=== PATIENT | male | born 1960 | race Asian ===

== ENCOUNTER 2018-06-27 03:39 | Inpatient (IN) | payer OTHER ==
[~2018-06-27] VITALS: Ht 175.3 cm; Wt 46.5 kg
[2018-06-27] VITALS (8 sets, daily range): BP systolic 105–130; BP diastolic 44–97
[2018-06-27] MEDS ORDERED: SODIUM CHLORIDE 0.9% 500 ML IV ONE ×2 (04:00→05:30)
[2018-06-27] MEDS ORDERED: DEXTROSE 50%-WATER 25 GM/50 ML SYRINGE IVP ONE ×4 (04:54→22:06)
[2018-06-27] MEDS ORDERED: DEXTROSE 5%-0.9% SODIUM CHL 1,000 ML IV ONE (05:00)
[2018-06-27 05:02] LABS: INR 1.6 (0.9-1.1); PROTHROMBIN TIME 16.7 SEC (9.4-11.6)
[2018-06-27 05:04] LABS: GLUCOSE,POINT OF CARE 58 MG/DL (70-110)
[2018-06-27 05:05] LABS: ANION GAP 4 mmol/L (8-16); CALCIUM, TOTAL 7.2 mg/dL (8.8-10.5); CARBON DIOXIDE 28 mmol/L (22-29); CHLORIDE 105 mmol/L (98-107); GLOMERULAR FILTR. RATE CALC > 60 mL/min (>60); GLUCOSE,RANDOM 104 mg/dL (70-110); POTASSIUM 4.7 mmol/L (3.5-5.1); SODIUM SERUM 137 mmol/L (136-145); UREA NITROGEN, BLOOD 53 mg/dL (7-18)
[2018-06-27 05:10] LABS: ALANINE AMINOTRANSFERASE 76 U/L (12-78); ALBUMIN 1.7 g/dL (3.4-5.0); ALKALINE PHOSPHATASE 286 U/L (46-116); ASPARTATE AMINOTRANSFERASE 189 U/L (15-37); BILIRUBIN,TOTAL 0.4 mg/dL (0.1-1.0); PHOSPHORUS 6.2 mg/dL (2.5-4.9); TOTAL PROTEIN, SERUM 6.7 g/dL (6.4-8.2)
[2018-06-27 05:21] LABS: APPEARANCE,URINE CLOUDY (CLEAR); BILIRUBIN,URINE NEGATIVE (NEGATIVE); GLUCOSE, URINE (UA) NEGATIVE (NEGATIVE); KETONES,URINE NEGATIVE (NEGATIVE); LEUKOCYTE ESTERASE ,URINE NEGATIVE (NEGATIVE); NITRATE,URINE NEGATIVE (NEGATIVE); OCCULT BLOOD,URINE NEGATIVE (NEGATIVE); PROTEIN,URINE NEGATIVE (NEGATIVE); UROBILINOGEN,URINE 0.2 mg/dL (<=1.0)
[2018-06-27 05:26] LABS: AMPHET/METH SCREEN,URINE NEGATIVE (NEGATIVE); BARBITURATE SCREEN, URINE NEGATIVE (NEGATIVE); BENZODIAZEPINES SCREEN,URINE NEGATIVE (NEGATIVE); CANNABINOID SCREEN,URINE NEGATIVE (NEGATIVE); COCAINE SCREEN,URINE NEGATIVE (NEGATIVE); METHADONE SCREEN, URINE NEGATIVE (NEGATIVE); OPIATE SCREEN,URINE NEGATIVE (NEGATIVE); PHENCYCLIDINE SCREEN,URINE NEGATIVE (NEGATIVE)
[2018-06-27] MEDS ORDERED: SODIUM CHLORIDE 0.9% 100 ML ONE (05:37)
[2018-06-27] MEDS ORDERED: IOVERSOL 350 MG/ML 100 ML VIAL ONE (05:37)
[2018-06-27 05:39] LABS: BASOPHILS % (AUTO) 0.3 % (0.0-2.0); EOSINOPHILS % (AUTO) 0 % (1.0-6.0); LYMPHOCYTES # (AUTO) 0.6 K/uL (1.0-4.8); LYMPHOCYTES % (AUTO) 28.6 % (22.0-44.0); MEAN CORPUSCULAR HEMOGLOBIN 24.3 pg (26.0-34.0); MEAN CORPUSCULAR HGB CONC 30.4 G/dL (31.0-37.0); MEAN CORPUSCULAR VOLUME 80 fL (80-100); MONOCYTES # (AUTO) 0.1 K/uL (0.1-1.0); NEUTROPHILS # (AUTO) 1.4 K/uL (1.8-7.7); NEUTROPHILS % (AUTO) 65.1 % (40.0-70.0); PLATELET COUNT (AUTO) 231 K/uL (150-450); RED BLOOD CELL COUNT(AUTO) 2.25 MIL/uL (4.50-5.90); RED CELL DISTRIBUTION WIDTH 20.3 % (11.5-14.5)
[2018-06-27 05:46] LABS: HEMOGLOBIN 5.5 g/dL (13.5-17.5)
[2018-06-27] MEDS ORDERED: PIPERACILLIN/TAZO 3.375 GM/D5W 50 ML IV ONE (06:45)
[2018-06-27 06:49] LABS: GLUCOSE,POINT OF CARE 141 MG/DL (70-110)
[2018-06-27 07:15] LABS: LACTIC ACID 4.1 mmol/L (0.4-2.0)
[2018-06-27] MEDS ORDERED: VANCOMYCIN HCL 1 GM/D5% WATER 200 ML IV ONE (07:30)
[2018-06-27] MEDS ORDERED: SODIUM CHLORIDE 0.9% 1,000 ML IV ONE (07:30)
[2018-06-27] MEDS: BARIUM SULFATE 0.1% SUSPENSION 450 ML BOTTLE NG ONE ×2 (07:57→11:30)
[2018-06-27 07:58] LABS: GLUCOSE,POINT OF CARE 150 MG/DL (70-110)
[2018-06-27] MEDS ORDERED: HYDROCODONE/ACETAMINOPHEN 5-325 MG TABLET PO PRN (08:15)
[2018-06-27] MEDS ORDERED: MORPHINE SULFATE 4 MG/ML SYRINGE IVP PRN (08:15)
[2018-06-27] MEDS ORDERED: BISACODYL 10 MG RECTAL RECTAL SUPPOSITORY PR PRN (08:15)
[2018-06-27] MEDS ORDERED: ACETAMINOPHEN 325 MG TABLET PO PRN (08:15)
[2018-06-27] MEDS ORDERED: *CLINICAL-LEVOFLOXACIN IVPB DOSING CLINICAL ONE (08:15)
[2018-06-27] MEDS ORDERED: MAGNESIUM HYDROXIDE SUSPENSION 30 ML UDCUP PO PRN (08:15)
[2018-06-27] MEDS ORDERED: ONDANSETRON HCL 4 MG/2 ML VIAL IVP PRN (08:15)
[2018-06-27] MEDS ORDERED: ZOLPIDEM TARTRATE 5 MG TABLET PO PRN (08:15)
[2018-06-27] MEDS ORDERED: LEVOFLOXACIN 750 MG/D5% WATER 150 ML IV SCH (09:00)
[2018-06-27 09:14] LABS: GLUCOSE,POINT OF CARE 173 MG/DL (70-110)
[2018-06-27 09:44] LABS: GLUCOSE,POINT OF CARE 188 MG/DL (70-110)
[2018-06-27] MEDS: DOCUSATE SODIUM 100 MG CAPSULE PO SCH ×2 (09:45→21:07)
[2018-06-27] MEDS: PANTOPRAZOLE SODIUM 40 MG DR TABLET PO SCH (09:45)
[2018-06-27] MEDS ORDERED: SODIUM CHLORIDE 0.9% 250 ML IV ONE ×3 (10:28→20:17)
[2018-06-27] MEDS: CLINDAMYCIN 600 MG/D5% WATER 50 ML IV SCH ×2 (12:02→16:50)
[2018-06-27] MEDS ORDERED: SODIUM BICARBONATE [ADULT] 8.4% 50 MEQ/50 ML SYRINGE IVP ONE (14:25)
[2018-06-27] MEDS ORDERED: EPINEPHrine 1:10,000 [1 MG/10 ML] SYRINGE IVP ONE (14:25)
[2018-06-27 16:11] LABS: HEMATOCRIT 32.6 % (41-53); HEMOGLOBIN 10.5 g/dL (13.5-17.5)
[2018-06-27] MEDS: HEPARIN SODIUM,PORCINE 5,000 UNITS/ML VIAL SQ SCH ×2 (16:49→23:40)
[2018-06-27] MEDS ORDERED: SODIUM CHLORIDE 0.9% 1,000 ML IV SCH (17:15)
[2018-06-27] MEDS: CefTRIAXone 1 GM/DEXTROSE 50 ML IV SCH (18:44)
[2018-06-27] MEDS: MetroNIDAZOLE 500 MG/NACL 100 ML IV SCH (18:44)
[2018-06-27 22:57] LABS: BASOPHILS % (AUTO) 0.1 % (0.0-2.0); MEAN CORPUSCULAR HGB CONC 29.1 G/dL (31.0-37.0); MONOCYTES # (AUTO) 0.1 K/uL (0.1-1.0); RED BLOOD CELL COUNT(AUTO) 2.45 MIL/uL (4.50-5.90)
[2018-06-27 23:00] LABS: EOSINOPHILS % (AUTO) 0.2 % (1.0-6.0); LYMPHOCYTES # (AUTO) 1.4 K/uL (1.0-4.8); LYMPHOCYTES % (AUTO) 56.7 % (22.0-44.0); MEAN CORPUSCULAR HEMOGLOBIN 26.2 pg (26.0-34.0); MEAN CORPUSCULAR VOLUME 90 fL (80-100); MONOCYTES % (AUTO) 3.3 % (2.0-9.0); NEUTROPHILS % (AUTO) 39.7 % (40.0-70.0); PLATELET COUNT (AUTO) 125 K/uL (150-450); RED CELL DISTRIBUTION WIDTH 18.7 % (11.5-14.5)
[2018-06-27 23:01] LABS: HEMOGLOBIN 6.4 g/dL (13.5-17.5)
[2018-06-27 23:14] LABS: PLATELET MORPHOLOGY COMMENT LARGE PLTS PRESENT
[2018-06-27 23:28] LABS: ANION GAP 7 mmol/L (8-16); CARBON DIOXIDE 24 mmol/L (22-29); CHLORIDE 103 mmol/L (98-107); CREATININE 0.92 mg/dL (0.60-1.30); GLOMERULAR FILTR. RATE CALC > 60 mL/min (>60); PHOSPHORUS 7.6 mg/dL (2.5-4.9); POTASSIUM 4.4 mmol/L (3.5-5.1); SODIUM SERUM 134 mmol/L (136-145); UREA NITROGEN, BLOOD 44 mg/dL (7-18)
[2018-06-27 23:39] LABS: GLUCOSE,POINT OF CARE < 10 MG/DL (70-110)
[2018-06-27 23:39] LABS: GLUCOSE,POINT OF CARE < 10 MG/DL (70-110)
[2018-06-27 23:39] LABS: GLUCOSE,POINT OF CARE 236 MG/DL (70-110)
[2018-06-27 23:39] LABS: GLUCOSE,POINT OF CARE < 10 MG/DL (70-110)
[2018-06-27 23:45] LABS: CALCIUM, TOTAL 5.7 mg/dL (8.8-10.5); GLUCOSE,RANDOM 707 mg/dL (70-110)
[2018-06-28] MEDS ORDERED: PHENYLEPHRINE 200 MG/D5%-WATER 250 ML IV PRN
[2018-06-28 00:06] LABS: ABG BASE EXCESS -11.3 mmol/L (-2.0-3.0); ABG CARBOXYHEMOGLOBIN 1.3 % (0.0-1.5); ABG HCO3 15.5 mmol/L (22.0-26.0); ABG METHEMOGLOBIN 0.3 % (0.0-1.5); ABG OXYGEN CONTENT 11.3 mL/dL (15.0-23.0); ABG OXYGEN SATURATION 88.7 % (95.0-98.0); ABG OXYHEMOGLOBIN 87.3 % (94.0-100.0); ABG PCO2 55 mmHg (35-45); ABG TOTAL HEMOGLOBIN 9.1 G/dL (12.0-18.0); PO2, ARTERIAL BG 65.4 mmHg (84.0-92.0); SOURCE, BLOOD GAS ARTERIAL; TEMPERATURE, FAHRENHEIT, BG 93.7 FAHREN (96.0-98.6)
[2018-06-28 00:07] LABS: ABG PH 7.126 (7.35-7.450); O2 DEVICE,BLOOD GAS VENTILATOR (ROOM AIR); PEEP,BG 5 cm H2O; SITE, BLOOD GAS RT FEMORAL; VT, ABG 350 ml
[2018-06-28 00:08] LABS: SPONTANEOUS VT, BG 608 ml
[2018-06-28] MEDS ORDERED: MORPHINE SULFATE 4 MG/ML SYRINGE IVP PRN (03:00)
[2018-06-28] MEDS: DEXTROSE 5%-0.9% SODIUM CHL 1,000 ML IV SCH ×2 (03:00→14:07)
[2018-06-28] MEDS: MetroNIDAZOLE 500 MG/NACL 100 ML IV SCH ×3 (03:37→19:00)
[2018-06-28 04:00] VITALS: BP 129/54
[2018-06-28 04:33] LABS: ABG A-A DIFF O2 616.2 mmHg (10-20.0); ABG BASE EXCESS -11.9 mmol/L (-2.0-3.0); ABG CARBOXYHEMOGLOBIN 0.9 % (0.0-1.5); ABG HCO3 15.5 mmol/L (22.0-26.0); ABG METHEMOGLOBIN 0.3 % (0.0-1.5); ABG OXYGEN CONTENT 13.4 mL/dL (15.0-23.0); ABG OXYGEN SATURATION 95.2 % (95.0-98.0); ABG OXYHEMOGLOBIN 94.1 % (94.0-100.0); ABG PCO2 35 mmHg (35-45); ABG PH 7.262 (7.35-7.450); PO2, ARTERIAL BG 72.8 mmHg (84.0-92.0); SOURCE, BLOOD GAS ARTERIAL; TEMPERATURE, FAHRENHEIT, BG 90.3 FAHREN (96.0-98.6)
[2018-06-28 04:34] LABS: O2 DEVICE,BLOOD GAS VENTILATOR (ROOM AIR); PEEP,BG 5 cm H2O; SITE, BLOOD GAS RT FEMORAL; VT, ABG 400 ml
[2018-06-28 06:50] LABS: GLUCOSE,POINT OF CARE 274 MG/DL (70-110)
[2018-06-28 06:50] LABS: GLUCOSE,POINT OF CARE 214 MG/DL (70-110)
[2018-06-28 06:50] LABS: GLUCOSE,POINT OF CARE 168 MG/DL (70-110)
[2018-06-28 06:53] LABS: GLUCOSE,POINT OF CARE 169 MG/DL (70-110)
[2018-06-28 08:00] VITALS: BP 126/46
[2018-06-28 08:15] LABS: HEMATOCRIT 33.2 % (41-53); HEMOGLOBIN 10.5 g/dL (13.5-17.5); MEAN CORPUSCULAR HEMOGLOBIN 26.5 pg (26.0-34.0); MEAN CORPUSCULAR HGB CONC 31.7 G/dL (31.0-37.0); MEAN CORPUSCULAR VOLUME 84 fL (80-100); PLATELET COUNT (AUTO) 147 K/uL (150-450); RED BLOOD CELL COUNT(AUTO) 3.97 MIL/uL (4.50-5.90); RED CELL DISTRIBUTION WIDTH 18.3 % (11.5-14.5)
[2018-06-28 08:25] LABS: INR 2.1 (0.9-1.1); PROTHROMBIN TIME 21.5 SEC (9.4-11.6)
[2018-06-28 08:32] LABS: ALANINE AMINOTRANSFERASE 394 U/L (12-78); ALBUMIN 1.3 g/dL (3.4-5.0); ALKALINE PHOSPHATASE 326 U/L (46-116); ANION GAP 11 mmol/L (8-16); ASPARTATE AMINOTRANSFERASE 866 U/L (15-37); BILIRUBIN,TOTAL 0.5 mg/dL (0.1-1.0); CARBON DIOXIDE 22 mmol/L (22-29); CHLORIDE 104 mmol/L (98-107); CREATININE 0.98 mg/dL (0.60-1.30); GLOMERULAR FILTR. RATE CALC > 60 mL/min (>60); GLUCOSE,RANDOM 164 mg/dL (70-110); LACTATE DEHYDROGENASE 505 U/L (85-227); PHOSPHORUS 6.6 mg/dL (2.5-4.9); POTASSIUM 3.9 mmol/L (3.5-5.1); SODIUM SERUM 137 mmol/L (136-145); TOTAL PROTEIN, SERUM 5.6 g/dL (6.4-8.2); UREA NITROGEN, BLOOD 52 mg/dL (7-18)
[2018-06-28 08:38] LABS: CALCIUM, TOTAL 5.8 mg/dL (8.8-10.5)
[2018-06-28] MEDS: DOCUSATE SODIUM 100 MG CAPSULE PO SCH ×2 (08:41→21:01)
[2018-06-28] MEDS: PANTOPRAZOLE SODIUM 40 MG DR TABLET PO SCH (08:41)
[2018-06-28] MEDS: HEPARIN SODIUM,PORCINE 5,000 UNITS/ML VIAL SQ SCH ×2 (08:41→16:31)
[2018-06-28 09:02] LABS: BAND NEUTROPHILS % (MANUAL) 6 % (0-5); LYMPHOCYTES % (MANUAL) 12 % (22-44); MONOCYTES % (MANUAL) 3 % (2-9); SEGMENTED NEUTROPHILS % 79 % (40-70)
[2018-06-28 09:14] LABS: GLUCOSE,POINT OF CARE 135 MG/DL (70-110)
[2018-06-28 09:39] LABS: ABG A-A DIFF O2 397.1 mmHg (10-20.0); ABG CARBOXYHEMOGLOBIN 0.8 % (0.0-1.5); ABG HCO3 19.4 mmol/L (22.0-26.0); ABG METHEMOGLOBIN 0.3 % (0.0-1.5); ABG OXYGEN CONTENT 14.3 mL/dL (15.0-23.0); ABG OXYGEN SATURATION 99.7 % (95.0-98.0); ABG OXYHEMOGLOBIN 98.6 % (94.0-100.0); ABG PCO2 34 mmHg (35-45); ABG PH 7.359 (7.35-7.450); ABG TOTAL HEMOGLOBIN 9.8 G/dL (12.0-18.0); PO2, ARTERIAL BG 282.4 mmHg (84.0-92.0); SITE, BLOOD GAS RT FEMORAL; SOURCE, BLOOD GAS ARTERIAL; TEMPERATURE, FAHRENHEIT, BG 98.6 FAHREN (96.0-98.6)
[2018-06-28 09:40] LABS: O2 DEVICE,BLOOD GAS VENTILATOR (ROOM AIR); PEEP,BG 5 cm H2O; SPONTANEOUS VT, BG 540 ml; VT, ABG 500 ml
[2018-06-28 12:00] VITALS: BP 129/74
[2018-06-28 12:59] LABS: GLUCOSE,POINT OF CARE 114 MG/DL (70-110)
[2018-06-28 13:28] LABS: ALANINE AMINOTRANSFERASE 382 U/L (12-78); ALBUMIN 1.4 g/dL (3.4-5.0); ALKALINE PHOSPHATASE 315 U/L (46-116); ANION GAP 12 mmol/L (8-16); ASPARTATE AMINOTRANSFERASE 787 U/L (15-37); BILIRUBIN,TOTAL 0.6 mg/dL (0.1-1.0); CALCIUM, TOTAL 6.1 mg/dL (8.8-10.5); CARBON DIOXIDE 22 mmol/L (22-29); CHLORIDE 103 mmol/L (98-107); CREATININE 0.89 mg/dL (0.60-1.30); GLOMERULAR FILTR. RATE CALC > 60 mL/min (>60); GLUCOSE,RANDOM 129 mg/dL (70-110); POTASSIUM 3.7 mmol/L (3.5-5.1); SODIUM SERUM 137 mmol/L (136-145); TOTAL PROTEIN, SERUM 5.9 g/dL (6.4-8.2); UREA NITROGEN, BLOOD 53 mg/dL (7-18)
[2018-06-28 15:15] LABS: ABG A-A DIFF O2 214.6 mmHg (10-20.0); ABG BASE EXCESS -8.1 mmol/L (-2.0-3.0); ABG CARBOXYHEMOGLOBIN 0.9 % (0.0-1.5); ABG HCO3 18.7 mmol/L (22.0-26.0); ABG METHEMOGLOBIN 0.3 % (0.0-1.5); ABG OXYGEN CONTENT 14.1 mL/dL (15.0-23.0); ABG OXYGEN SATURATION 99.9 % (95.0-98.0); ABG OXYHEMOGLOBIN 98.7 % (94.0-100.0); ABG PCO2 23 mmHg (35-45); ABG PH 7.466 (7.35-7.450); ABG TOTAL HEMOGLOBIN 9.5 G/dL (12.0-18.0); PO2, ARTERIAL BG 306.1 mmHg (84.0-92.0); SOURCE, BLOOD GAS ARTERIAL; TEMPERATURE, FAHRENHEIT, BG 87.6 FAHREN (96.0-98.6)
[2018-06-28 15:17] LABS: O2 DEVICE,BLOOD GAS VENTILATOR (ROOM AIR); SITE, BLOOD GAS RT RADIAL; VT, ABG 500 ml
[2018-06-28 15:18] LABS: PEEP,BG 5 cm H2O
[2018-06-28 16:00] VITALS: BP 122/76
[2018-06-28] MEDS ORDERED: VANCOMYCIN HCL 1 GM/D5% WATER 200 ML IV ONE (16:00)
[2018-06-28] MEDS ORDERED: CALCIUM GLUCONATE 1,000 MG in DEXTROSE 5%-WATER 50 ML IV ONE (17:15)
[2018-06-28] MEDS ORDERED: LIDOCAINE 2% 30 ML JELLY TP ONE (18:05)
[2018-06-28] MEDS ORDERED: LIDOCAINE 4% 50 ML SOLUTION TP ONE (18:05)
[2018-06-28] MEDS ORDERED: EPINEPHrine 1:1,000 [1 MG/ML] AMP IM ONE (18:05)
[2018-06-28] MEDS: CefTRIAXone 1 GM/DEXTROSE 50 ML IV SCH (18:11)
[2018-06-28 18:35] LABS: GLUCOSE,POINT OF CARE 130 MG/DL (70-110)
[2018-06-28] MEDS: LORazepam 2 MG/ML VIAL IVP PRN (19:42)
[2018-06-28 20:00] VITALS: BP 168/103
[2018-06-28 20:00] LABS: ALANINE AMINOTRANSFERASE 335 U/L (12-78); ALBUMIN 1.3 g/dL (3.4-5.0); ALKALINE PHOSPHATASE 294 U/L (46-116); ANION GAP 11 mmol/L (8-16); ASPARTATE AMINOTRANSFERASE 582 U/L (15-37); BILIRUBIN,TOTAL 0.5 mg/dL (0.1-1.0); CALCIUM, TOTAL 6.2 mg/dL (8.8-10.5); CARBON DIOXIDE 20 mmol/L (22-29); CHLORIDE 103 mmol/L (98-107); CREATININE 0.98 mg/dL (0.60-1.30); GLOMERULAR FILTR. RATE CALC > 60 mL/min (>60); GLUCOSE,RANDOM 190 mg/dL (70-110); PHOSPHORUS 5.7 mg/dL (2.5-4.9); POTASSIUM 3.4 mmol/L (3.5-5.1); SODIUM SERUM 134 mmol/L (136-145); TOTAL PROTEIN, SERUM 5.6 g/dL (6.4-8.2); UREA NITROGEN, BLOOD 53 mg/dL (7-18)
[2018-06-28 21:14] LABS: ABG A-A DIFF O2 98.8 mmHg (10-20.0); ABG BASE EXCESS -9.5 mmol/L (-2.0-3.0); ABG CARBOXYHEMOGLOBIN 0.9 % (0.0-1.5); ABG HCO3 17.9 mmol/L (22.0-26.0); ABG METHEMOGLOBIN 0.3 % (0.0-1.5); ABG OXYGEN CONTENT 14.8 mL/dL (15.0-23.0); ABG OXYGEN SATURATION 99.9 % (95.0-98.0); ABG OXYHEMOGLOBIN 98.7 % (94.0-100.0); ABG PCO2 21 mmHg (35-45); ABG PH 7.465 (7.35-7.450); ABG TOTAL HEMOGLOBIN 10.2 G/dL (12.0-18.0); PO2, ARTERIAL BG 239.4 mmHg (84.0-92.0); SOURCE, BLOOD GAS ARTERIAL; TEMPERATURE, FAHRENHEIT, BG 90.7 FAHREN (96.0-98.6)
[2018-06-28 21:14] LABS: GLUCOSE,POINT OF CARE 127 MG/DL (70-110)
[2018-06-28 21:15] LABS: O2 DEVICE,BLOOD GAS VENTILATOR (ROOM AIR); PEEP,BG 5 cm H2O; SITE, BLOOD GAS LFT RADIAL; VT, ABG 500 ml
[2018-06-28] MEDS ORDERED: PROPOFOL 1000 MG/ISO-OSM 100 ML IV PRN (22:44)
[2018-06-29] VITALS: BP 132/84
[2018-06-29] MEDS: DEXTROSE 5%-0.9% SODIUM CHL 1,000 ML IV SCH ×3 (00:21→21:07)
[2018-06-29] MEDS: HEPARIN SODIUM,PORCINE 5,000 UNITS/ML VIAL SQ SCH ×4 (00:21→23:58)
[2018-06-29 00:59] LABS: GLUCOSE,POINT OF CARE 150 MG/DL (70-110)
[2018-06-29 01:39] LABS: ALANINE AMINOTRANSFERASE 286 U/L (12-78); ALBUMIN 1.2 g/dL (3.4-5.0); ALKALINE PHOSPHATASE 249 U/L (46-116); ANION GAP 11 mmol/L (8-16); ASPARTATE AMINOTRANSFERASE 457 U/L (15-37); BILIRUBIN,TOTAL 0.4 mg/dL (0.1-1.0); CARBON DIOXIDE 22 mmol/L (22-29); CHLORIDE 103 mmol/L (98-107); CREATININE 1.18 mg/dL (0.60-1.30); GLOMERULAR FILTR. RATE CALC > 60 mL/min (>60); GLUCOSE,RANDOM 158 mg/dL (70-110); PHOSPHORUS 5.4 mg/dL (2.5-4.9); SODIUM SERUM 136 mmol/L (136-145); UREA NITROGEN, BLOOD 57 mg/dL (7-18)
[2018-06-29 01:45] LABS: CALCIUM, TOTAL 5.5 mg/dL (8.8-10.5); POTASSIUM 2.8 mmol/L (3.5-5.1)
[2018-06-29] MEDS ORDERED: POTASSIUM CHLORIDE 10% 40 MEQ/30 ML LIQUID UDCUP NG PRN (02:00)
[2018-06-29] MEDS ORDERED: POTASSIUM CHL 10 MEQ/WATER 50 ML IV PRN (02:00)
[2018-06-29] MEDS ORDERED: POTASSIUM CHLORIDE 20 MEQ ER TABLET PO PRN (02:00)
[2018-06-29] MEDS ORDERED: SODIUM CHLORIDE 0.9% 250 ML IV ONE ×2 (02:06→07:23)
[2018-06-29] MEDS: POTASSIUM CHL 10 MEQ/WATER 50 ML IV PRN ×2 (02:26→11:33)
[2018-06-29] MEDS: MetroNIDAZOLE 500 MG/NACL 100 ML IV SCH ×3 (02:28→17:48)
[2018-06-29] MEDS ORDERED: CALCIUM GLUCONATE 1,000 MG in DEXTROSE 5%-WATER 50 ML IV ONE ×2 (02:30→10:00)
[2018-06-29] MEDS ORDERED: SODIUM CHLORIDE 0.9% 1,000 ML IV ONE (02:45)
[2018-06-29 03:06] LABS: ABG A-A DIFF O2 74.2 mmHg (10-20.0); ABG BASE EXCESS -7.2 mmol/L (-2.0-3.0); ABG CARBOXYHEMOGLOBIN 0.7 % (0.0-1.5); ABG HCO3 19.4 mmol/L (22.0-26.0); ABG METHEMOGLOBIN 0.3 % (0.0-1.5); ABG OXYGEN CONTENT 13.5 mL/dL (15.0-23.0); ABG OXYGEN SATURATION 98.7 % (95.0-98.0); ABG OXYHEMOGLOBIN 97.7 % (94.0-100.0); ABG PCO2 23 mmHg (35-45); ABG TOTAL HEMOGLOBIN 9.6 G/dL (12.0-18.0); O2 DEVICE,BLOOD GAS VENTILATOR (ROOM AIR); PEEP,BG 5 cm H2O; PO2, ARTERIAL BG 115.7 mmHg (84.0-92.0); SITE, BLOOD GAS LFT RADIAL; SOURCE, BLOOD GAS ARTERIAL; TEMPERATURE, FAHRENHEIT, BG 91.6 FAHREN (96.0-98.6); VT, ABG 400 ml
[2018-06-29] MEDS: LORazepam 2 MG/ML VIAL IVP PRN ×2 (03:08→20:21)
[2018-06-29] MEDS: ACETAMINOPHEN 650 MG/20.3 ML SOLUTION UDCUP NG SCH ×5 (03:10→21:07)
[2018-06-29 04:00] VITALS: BP 131/89
[2018-06-29 04:44] LABS: GLUCOSE,POINT OF CARE 131 MG/DL (70-110)
[2018-06-29 07:57] LABS: ALANINE AMINOTRANSFERASE 264 U/L (12-78); ALBUMIN 1.2 g/dL (3.4-5.0); ALKALINE PHOSPHATASE 225 U/L (46-116); ANION GAP 11 mmol/L (8-16); ASPARTATE AMINOTRANSFERASE 378 U/L (15-37); BILIRUBIN,TOTAL 0.3 mg/dL (0.1-1.0); CARBON DIOXIDE 20 mmol/L (22-29); CHLORIDE 106 mmol/L (98-107); CREATININE 1.11 mg/dL (0.60-1.30); GLOMERULAR FILTR. RATE CALC > 60 mL/min (>60); GLUCOSE,RANDOM 165 mg/dL (70-110); POTASSIUM 3.1 mmol/L (3.5-5.1); SODIUM SERUM 137 mmol/L (136-145); THYROID STIMULATING HORMONE 2.95 uIU/mL (0.36-3.74); TOTAL PROTEIN, SERUM 4.7 g/dL (6.4-8.2); UREA NITROGEN, BLOOD 54 mg/dL (7-18)
[2018-06-29 08:00] VITALS: BP 115/65
[2018-06-29 08:18] LABS: CALCIUM, TOTAL 5.4 mg/dL (8.8-10.5)
[2018-06-29] MEDS: VANCOMYCIN HCL 750 MG in DEXTROSE 5%-WATER 250 ML IV SCH ×2 (08:21→21:07)
[2018-06-29] MEDS: DOCUSATE SODIUM 100 MG CAPSULE PO SCH ×2 (08:22→21:07)
[2018-06-29] MEDS: PANTOPRAZOLE SODIUM 40 MG DR TABLET PO SCH (08:22)
[2018-06-29 08:35] LABS: GLUCOSE,POINT OF CARE 144 MG/DL (70-110)
[2018-06-29 11:23] LABS: ABG BASE EXCESS -8.1 mmol/L (-2.0-3.0); ABG CARBOXYHEMOGLOBIN 0.9 % (0.0-1.5); ABG HCO3 18.7 mmol/L (22.0-26.0); ABG METHEMOGLOBIN 0.3 % (0.0-1.5); ABG OXYGEN CONTENT 12.6 mL/dL (15.0-23.0); ABG OXYGEN SATURATION 98.1 % (95.0-98.0); ABG OXYHEMOGLOBIN 96.9 % (94.0-100.0); ABG PCO2 24 mmHg (35-45); ABG TOTAL HEMOGLOBIN 9.1 G/dL (12.0-18.0); PO2, ARTERIAL BG 106.3 mmHg (84.0-92.0); SITE, BLOOD GAS LFT RADIAL; SOURCE, BLOOD GAS ARTERIAL; TEMPERATURE, FAHRENHEIT, BG 96.4 FAHREN (96.0-98.6)
[2018-06-29 11:24] LABS: O2 DEVICE,BLOOD GAS VENTILATOR (ROOM AIR); PEEP,BG 5 cm H2O; VT, ABG 400 ml
[2018-06-29 12:00] VITALS: BP 132/76
[2018-06-29 12:09] LABS: GLUCOSE,POINT OF CARE 138 MG/DL (70-110)
[2018-06-29 13:44] LABS: ALBUMIN 1.3 g/dL (3.4-5.0); BILIRUBIN,TOTAL 0.4 mg/dL (0.1-1.0); CREATININE 1.25 mg/dL (0.60-1.30); MAGNESIUM 1.6 mg/dL (1.80-2.40); POTASSIUM 3.7 mmol/L (3.5-5.1); TOTAL PROTEIN, SERUM 5.2 g/dL (6.4-8.2)
[2018-06-29 13:50] LABS: CALCIUM, TOTAL 5.7 mg/dL (8.8-10.5)
[2018-06-29 16:00] VITALS: BP 119/74
[2018-06-29] MEDS ORDERED: IOVERSOL 320 MG/ML 50 ML VIAL ONE (16:31)
[2018-06-29] MEDS ORDERED: SODIUM CHLORIDE 0.9% 100 ML ONE (16:31)
[2018-06-29] MEDS ORDERED: IOVERSOL 320 MG/ML 100 ML VIAL ONE (16:31)
[2018-06-29] MEDS ORDERED: DEXTROSE 50%-WATER 25 GM/50 ML SYRINGE IVP ONE ×2 (16:45)
[2018-06-29] MEDS: CefTRIAXone 1 GM/DEXTROSE 50 ML IV SCH (16:55)
[2018-06-29 17:19] LABS: GLUCOSE,POINT OF CARE 101 MG/DL (70-110)
[2018-06-29 17:19] LABS: GLUCOSE,POINT OF CARE 68 MG/DL (70-110)
[2018-06-29 20:00] VITALS: BP 150/95
[2018-06-29 21:33] LABS: GLUCOSE,POINT OF CARE 127 MG/DL (70-110)
[2018-06-30] VITALS: BP 143/79
[2018-06-30] MEDS: ACETAMINOPHEN 650 MG/20.3 ML SOLUTION UDCUP NG SCH (02:59)
[2018-06-30] MEDS: MetroNIDAZOLE 500 MG/NACL 100 ML IV SCH ×3 (03:04→18:19)
[2018-06-30 04:00] VITALS: BP 118/92
[2018-06-30 05:19] LABS: GLUCOSE,POINT OF CARE 156 MG/DL (70-110)
[2018-06-30 05:19] LABS: GLUCOSE,POINT OF CARE 138 MG/DL (70-110)
[2018-06-30 05:31] LABS: CREATININE 1.28 mg/dL (0.60-1.30); VANCOMYCIN,RANDOM 42.4 mcg/mL (25.0-50.0)
[2018-06-30 05:34] LABS: POTASSIUM 2.8 mmol/L (3.5-5.1)
[2018-06-30 05:35] LABS: CALCIUM, TOTAL 5.6 mg/dL (8.8-10.5)
[2018-06-30] MEDS: POTASSIUM CHL 10 MEQ/WATER 50 ML IV PRN ×7 (06:03→16:51)
[2018-06-30] MEDS: DEXTROSE 5%-0.9% SODIUM CHL 1,000 ML IV SCH ×2 (07:51→16:51)
[2018-06-30 08:00] VITALS: BP 156/103
[2018-06-30] MEDS ORDERED: DEXTROSE 50%-WATER 25 GM/50 ML SYRINGE IVP ONE (08:15)
[2018-06-30] MEDS: HEPARIN SODIUM,PORCINE 5,000 UNITS/ML VIAL SQ SCH ×3 (08:22→23:57)
[2018-06-30] MEDS: VANCOMYCIN HCL 750 MG in DEXTROSE 5%-WATER 250 ML IV SCH (08:24)
[2018-06-30] MEDS ORDERED: SODIUM CHLORIDE 0.9% 250 ML IV ONE ×2 (09:37→16:49)
[2018-06-30] MEDS: PANTOPRAZOLE SODIUM 40 MG DR TABLET PO SCH (10:28)
[2018-06-30] MEDS: DOCUSATE SODIUM 100 MG CAPSULE PO SCH ×2 (10:28→22:23)
[2018-06-30 12:00] VITALS: BP 132/83
[2018-06-30 16:00] VITALS: BP 132/91
[2018-06-30] MEDS: CefTRIAXone 1 GM/DEXTROSE 50 ML IV SCH (16:48)
[2018-06-30 18:14] LABS: GLUCOSE,POINT OF CARE 112 MG/DL (70-110)
[2018-06-30 18:14] LABS: GLUCOSE,POINT OF CARE 121 MG/DL (70-110)
[2018-06-30 18:14] LABS: GLUCOSE,POINT OF CARE 110 MG/DL (70-110)
[2018-06-30 18:14] LABS: GLUCOSE,POINT OF CARE 60 MG/DL (70-110)
[2018-06-30 20:00] VITALS: BP 141/83
[2018-07-01] VITALS: BP 151/86
[2018-07-01] MEDS: MetroNIDAZOLE 500 MG/NACL 100 ML IV SCH ×3 (03:13→18:40)
[2018-07-01] MEDS: DEXTROSE 5%-0.9% SODIUM CHL 1,000 ML IV SCH ×2 (03:15→13:42)
[2018-07-01 04:00] VITALS: BP 160/90
[2018-07-01 05:21] LABS: ANION GAP 12 mmol/L (8-16); CALCIUM, TOTAL 6.1 mg/dL (8.8-10.5); CARBON DIOXIDE 19 mmol/L (22-29); CHLORIDE 108 mmol/L (98-107); GLOMERULAR FILTR. RATE CALC > 60 mL/min (>60); GLUCOSE,RANDOM 111 mg/dL (70-110); POTASSIUM 3.6 mmol/L (3.5-5.1); SODIUM SERUM 139 mmol/L (136-145); UREA NITROGEN, BLOOD 45 mg/dL (7-18)
[2018-07-01 08:00] VITALS: BP 156/92
[2018-07-01] MEDS: DOCUSATE SODIUM 100 MG CAPSULE PO SCH (08:53)
[2018-07-01] MEDS: HEPARIN SODIUM,PORCINE 5,000 UNITS/ML VIAL SQ SCH ×2 (08:53→17:31)
[2018-07-01] MEDS: PANTOPRAZOLE SODIUM 40 MG DR TABLET PO SCH (08:53)
[2018-07-01 09:40] LABS: GLUCOSE,POINT OF CARE 97 MG/DL (70-110)
[2018-07-01 09:58] LABS: ABG BASE EXCESS -10.5 mmol/L (-2.0-3.0); ABG CARBOXYHEMOGLOBIN 0.5 % (0.0-1.5); ABG HCO3 17.2 mmol/L (22.0-26.0); ABG METHEMOGLOBIN 0.3 % (0.0-1.5); ABG OXYGEN CONTENT 12.3 mL/dL (15.0-23.0); ABG OXYGEN SATURATION 98.6 % (95.0-98.0); ABG OXYHEMOGLOBIN 97.8 % (94.0-100.0); ABG PCO2 18 mmHg (35-45); ABG PH 7.478 (7.35-7.450); ABG TOTAL HEMOGLOBIN 8.7 G/dL (12.0-18.0); PO2, ARTERIAL BG 146.1 mmHg (84.0-92.0); SITE, BLOOD GAS RT RADIAL; SOURCE, BLOOD GAS ARTERIAL; TEMPERATURE, FAHRENHEIT, BG 97.6 FAHREN (96.0-98.6)
[2018-07-01 09:59] LABS: O2 DEVICE,BLOOD GAS VENTILATOR (ROOM AIR); PEEP,BG 5 cm H2O; VT, ABG 400 ml
[2018-07-01 12:00] VITALS: BP 141/87
[2018-07-01 16:00] VITALS: BP 145/79
[2018-07-01 16:58] LABS: GLUCOSE,POINT OF CARE 101 MG/DL (70-110)
[2018-07-01 16:58] LABS: GLUCOSE,POINT OF CARE 115 MG/DL (70-110)
[2018-07-01 16:58] LABS: GLUCOSE,POINT OF CARE 97 MG/DL (70-110)
[2018-07-01 16:58] LABS: GLUCOSE,POINT OF CARE 89 MG/DL (70-110)
[2018-07-01] MEDS ORDERED: LevETIRAcetam 500 MG in DEXTROSE 5%-WATER 100 ML IV ONE (17:00)
[2018-07-01] MEDS: CefTRIAXone 1 GM/DEXTROSE 50 ML IV SCH (17:31)
[2018-07-01 17:53] LABS: GLUCOSE,POINT OF CARE 96 MG/DL (70-110)
[2018-07-01 18:06] LABS: BASOPHILS % (AUTO) 0.1 % (0.0-2.0); EOSINOPHILS % (AUTO) 0.4 % (1.0-6.0); HEMATOCRIT 25.6 % (41-53); HEMOGLOBIN 8.3 g/dL (13.5-17.5); LYMPHOCYTES # (AUTO) 0.5 K/uL (1.0-4.8); LYMPHOCYTES % (AUTO) 6.1 % (22.0-44.0); MEAN CORPUSCULAR HGB CONC 32.4 G/dL (31.0-37.0); MEAN CORPUSCULAR VOLUME 80 fL (80-100); MONOCYTES # (AUTO) 0.2 K/uL (0.1-1.0); MONOCYTES % (AUTO) 2.1 % (2.0-9.0); NEUTROPHILS # (AUTO) 7.6 K/uL (1.8-7.7); PLATELET COUNT (AUTO) 103 K/uL (150-450); RED BLOOD CELL COUNT(AUTO) 3.19 MIL/uL (4.50-5.90); RED CELL DISTRIBUTION WIDTH 19.3 % (11.5-14.5)
[2018-07-01 18:12] LABS: INR 1.5 (0.9-1.1); PROTHROMBIN TIME 15.9 SEC (9.4-11.6)
[2018-07-01 18:17] LABS: ANION GAP 10 mmol/L (8-16); CARBON DIOXIDE 19 mmol/L (22-29); CHLORIDE 110 mmol/L (98-107); CREATININE 0.99 mg/dL (0.60-1.30); GLOMERULAR FILTR. RATE CALC > 60 mL/min (>60); GLUCOSE,RANDOM 127 mg/dL (70-110); POTASSIUM 3.4 mmol/L (3.5-5.1); SODIUM SERUM 139 mmol/L (136-145); UREA NITROGEN, BLOOD 38 mg/dL (7-18)
[2018-07-01 18:25] LABS: ALANINE AMINOTRANSFERASE 139 U/L (12-78); ALBUMIN 1.1 g/dL (3.4-5.0); ALKALINE PHOSPHATASE 218 U/L (46-116); ASPARTATE AMINOTRANSFERASE 94 U/L (15-37); BILIRUBIN,TOTAL 0.4 mg/dL (0.1-1.0); TOTAL PROTEIN, SERUM 4.9 g/dL (6.4-8.2)
[2018-07-01 18:30] LABS: NEUTROPHILS % (AUTO) 91.3 % (40.0-70.0)
[2018-07-01] MEDS: POTASSIUM CHL 10 MEQ/WATER 50 ML IV PRN (18:39)
[2018-07-01] MEDS ORDERED: SODIUM CHLORIDE 0.9% 250 ML IV ONE (18:42)
[2018-07-01] MEDS ORDERED: LevETIRAcetam 500 MG TABLET PO SCH (21:00)
[2018-07-02] MEDS ORDERED: VANCOMYCIN HCL 750 MG in DEXTROSE 5%-WATER 250 ML IV SCH (08:00)
[2018-07-02 09:36] LABS: HIV 1-2 SCREEN 4TH GEN W/RFLX Non Reactive (Non Reactive)
== END 2018-07-01 19:20 | disposition short-term general hospital (02) | DRG 853 ==
LOC: EMS 03:40 → EDBD 03:40 → ICU 05:00
PROVIDERS: ADMIT Internal Medicine; ATTEND Internal Medicine
PROC: 5A1945Z Respiratory Ventilation, 24-96 Consecutive Hours (ICD-10-PCS; 2018-06-27)
PROC: 0BH17EZ Insertion of Endotracheal Airway into Trachea, Via Natural or Artificial Opening (ICD-10-PCS; 2018-06-27)
PROC: 30233N1 Transfusion of Nonautologous Red Blood Cells into Peripheral Vein, Percutaneous Approach (ICD-10-PCS; 2018-06-27)
PROC: 0B9C8ZZ Drainage of Right Upper Lung Lobe, Via Natural or Artificial Opening Endoscopic (ICD-10-PCS; principal; 2018-06-28)
PROC: 0B938ZZ Drainage of Right Main Bronchus, Via Natural or Artificial Opening Endoscopic (ICD-10-PCS; 2018-06-28)
PROC: 05HY33Z Insertion of Infusion Device into Upper Vein, Percutaneous Approach (ICD-10-PCS; 2018-06-28)
PROC: 5A12012 Performance of Cardiac Output, Single, Manual (ICD-10-PCS; 2018-06-28)
PROC: 0B9D8ZX Drainage of Right Middle Lung Lobe, Via Natural or Artificial Opening Endoscopic, Diagnostic (ICD-10-PCS; 2018-06-28)
DX: A41.9 Sepsis, unspecified organism (principal); E43 Unspecified severe protein-calorie malnutrition; G93.41 Metabolic encephalopathy; I46.9 Cardiac arrest, cause unspecified; I50.21 Acute systolic (congestive) heart failure; J69.0 Pneumonitis due to inhalation of food and vomit; J96.00 Acute respiratory failure, unspecified whether with hypoxia or hypercapnia; K65.1 Peritoneal abscess; D68.9 Coagulation defect, unspecified; E87.3 Alkalosis; I42.9 Cardiomyopathy, unspecified; J98.19 Other pulmonary collapse; Z68.1 Body mass index [BMI] 19.9 or less, adult; A49.01 Methicillin susceptible Staphylococcus aureus infection, unspecified site; D64.9 Anemia, unspecified; E11.649 Type 2 diabetes mellitus with hypoglycemia without coma; E83.51 Hypocalcemia; E86.0 Dehydration; G40.909 Epilepsy, unspecified, not intractable, without status epilepticus; R62.7 Adult failure to thrive; Z87.11 Personal history of peptic ulcer disease; Z87.891 Personal history of nicotine dependence; Z74.01 Bed confinement status; Z78.1 Physical restraint status
CPT/HCPCS: 36245; 36430; 70450; 71260; 72193; 74160; 74176; 74177; 76937; 82271; 82805; 82948; 83605; 83615; 83735; 84100; 84132; 84145; 84443; 85007; 85014; 85018; 86850; 86900; 86901; 86920; 87015; 87040; 87070; 87081; 87205; 87206; 87220; 87389; 92950; 93005; 93306; 94002; 94003; 95816; 96365; 96367; 96375; 99291; G0378; G0480; J0171; J0610; J0696; J0712; J1644; J1956; J2060; J2370; J2543; J3370; J3480; J3490; J7030; J7042; J7050; J7060; P9016